=== PATIENT | male | born 1970 | race Hispanic/Latino ===

== ENCOUNTER 2017-03-05 18:14 | Emergency (ER) | payer BC ==
[2017-03-05] MEDS ORDERED: diphenhydrAMINE 50 MG/1 ML VIAL IVP ONE (18:17)
[2017-03-05] MEDS ORDERED: Famotidine Inj 20 MG in Normal Saline Flush 10 ML IVP ONE (18:17)
[2017-03-05] MEDS ORDERED: DEXAMETHASONE PF 10 MG/1 ML VIAL IV ONE (18:17)
[2017-03-05] MEDS ORDERED: FAMOTIDINE 20 MG/2 ML VIAL IVP ONE (18:18)
[2017-03-05] MEDS ORDERED: diphenhydrAMINE 50 MG/1 ML VIAL ONE ×2 (18:18→18:20)
[2017-03-05] MEDS ORDERED: DEXAMETHASONE PF 10 MG/1 ML VIAL ONE (18:19)
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
[2017-03-05] MEDS ORDERED: ALBUTEROL SULFATE 2.5 MG/3 ML NEB ONE (18:28)
[2017-03-05 19:29] VITALS: RESP 24; TEMP 98.4
== END 2017-03-05 19:42 | disposition home or self-care (01) ==
LOC: ER 18:14
DX: T78.40XA Allergy, unspecified, initial encounter (principal); I10 Essential (primary) hypertension; R13.19 Other dysphagia; R06.00 Dyspnea, unspecified
CPT/HCPCS: 94640; 96374; 96375; 99282; 99283; J1200; J1100